=== PATIENT | male | born 1935 | race Caucasian/White ===

== ENCOUNTER 2017-07-15 11:57 | Observation (INO) | payer MEDICARE, BC ==
[2017-07-15] MEDS ORDERED: Sodium Chloride 0.9% 1,000 ML IV SCH (12:45)
--- NOTE | 2017-07-15 12:45 | EDM.PDOC ---
ED HPI GENERAL MEDICAL PROBLEM - General Chief Complaint: General Stated Complaint: MEDICAL Time Seen by Provider: 07/15/17 12:20 Source of Information: Reports: Patient, EMS, Family History Limitations: Reports: No Limitations - History of Present Illness INITIAL COMMENTS - FREE TEXT/NARRATIVE: 82-year-old male who unfortunately is developing worsening Alzheimer's type symptoms, becoming less able to care for himself and participate in daily self- care activities. He is becoming weaker and falling frequently. He had a neuro memory assessment last week which agreed that it is likely Alzheimer's type rapidly progressing. He has fallen several times in the last 3 days and his can simply not take care of him anymore. He is not eating well, becoming frail. No fevers or chills, does not complain of shortness of breath or cough but his history is somewhat inconsistent as his ability to stay on task with a conversation is very limited. He has a bruise on his right chin from a recent fall. The ambulance went to his place of residence again today after another fall and the home health nurse suggested he come in to start the process of more definitive care. In reviewing his clinic records he surprisingly has not had any lab work in the last 5 months. He has a known significant prostatic hypertrophy but is not complaining of dysuria or urinary tract symptoms although he tends to be incontinent at times. Onset: Unknown/Unsure Severity: Moderate Associated Symptoms: Reports: Loss of Appetite, Malaise, Weakness. Denies: Chest Pain, Fever/Chills, Headaches, Shortness of Breath - Related Data Allergies Allergy/AdvReac Type Severity Reaction Status Date / Time No Known Allergies Allergy Verified 05/14/13 08:02 Home Meds: Home Meds Metoprolol Succinate 50 mg PO DAILY 01/10/13 [History] Nitroglycerin 0.4 mg PO ASDIRECTED PRN 01/10/13 [History] Simvastatin [Zocor] 40 mg PO BEDTIME 01/10/13 [History] Tamsulosin [Flomax] 0.4 mg PO DAILY 11/24/15 [History] Aspirin 162 mg PO DAILY 07/15/17 [History] Oxybutynin 5 mg PO QPM 07/15/17 [History] Past Medical History Cardiovascular History: Reports: CAD, High Cholesterol, Hypertension Genitourinary History: Reports: BPH - Past Surgical History Musculoskeletal Surgical History: Reports: Knee Replacement Social & Family History - Tobacco Use Smoking Status *Q: Never Smoker Years of Tobacco use: 40 Used Tobacco, but Quit: Yes Month/Year Tobacco Last Used: July, Second Hand Smoke Exposure: No - Alcohol Use Days Per Week of Alcohol Use: 1 Number of Drinks Per Day: 1 Total Drinks Per Week: 1 - Recreational Drug Use Recreational Drug Use: No ED ROS GENERAL - Review of Systems Review Of Systems: See Below Constitutional: Denies: Fever Respiratory: Denies: Shortness of Breath Cardiovascular: Denies: Chest Pain GI/Abdominal: Denies: Abdominal Pain Musculoskeletal: Reports: Other (Chronic left knee pain) Skin: Reports: Bruising (Bruising on his right chin from a recent fall) Neurological: Reports: Confusion, Weakness ED EXAM, GENERAL - Physical Exam Exam: See Below Exam Limited By: Altered Mental Status (Patient has significant delay with answering questions does not seem to be consistent with answers) General Appearance: Alert, No Apparent Distress Eye Exam: Bilateral Eye: EOMI Head: Other (Patient has a small area of swelling and bruising on his right mandible) Neck: Supple Respiratory/Chest: No Respiratory Distress, Lungs Clear Cardiovascular: Regular Rate, Rhythm GI/Abdominal: Soft, Non-Tender Extremities: Other (Reacts with tenderness to palpation around the left knee, there is a neoprene knee sleeve present). No: Pedal Edema Neurological: Alert, Other (Seems to be oriented to time and place as well as person but very flat affect and slow response to questions) Course - Vital Signs Last Recorded V/S: Last Vital Signs Temp 97.9 F 07/16/17 07:45 Pulse 78 07/16/17 08:40 Resp 16 07/16/17 08:40 BP 107/80 07/16/17 08:40 Pulse Ox 97 07/16/17 08:40 - Orders/Labs/Meds Orders: Medication Orders Acetaminophen (Tylenol) 650 mg PO Q4H PRN PRN Reason: Pain (Mild 1-3)/fever Aspirin (Halfprin) 162 mg PO DAILY [facility] Ibuprofen (Motrin) 400 mg PO Q6H PRN PRN Reason: Pain (mild 1-3) Melatonin (Melatonin) 9 mg PO BEDTIME [facility] Last Admin: 07/15/17 20:00 Dose: 9 mg Metoprolol Succinate (Toprol Xl) 50 mg PO DAILY [facility] Ondansetron HCl (Zofran Odt) 4 mg PO Q6H PRN PRN Reason: Nausea able to take PO Oxybutynin Chloride (Oxybutynin) 5 mg PO BID [facility] Last Admin: 07/15/17 20:00 Dose: 5 mg Simvastatin 40 Mg (TabPom) 0 each PO BEDTIME [facility] Senna/Docusate Sodium (Senna Plus) 1 tab PO BID PRN PRN Reason: Constipation Tamsulosin HCl (Flomax) 0.4 mg PO BEDTIME [facility] Last Admin: 07/15/17 20:00 Dose: 0.4 mg Labs: Laboratory Tests 07/15/17 07/15/17 07/15/17 Range/Units 12:46 12:46 12:59 WBC 11.0 (4.5-11.0) K/uL RBC 4.52 (4.30-5.90) M/uL Hgb 14.5 (12.0-15.0) g/dL Hct 41.3 (40.0-54.0) % MCV 91 (80-98) fL MCH 32 H (27-31) pg MCHC 35 (32-36) % Plt Count 215 (150-400) K/uL Neut % (Auto) 84 H (36-66) % Lymph % (Auto) 5 L (24-44) % [place] % (Auto) 10 H (2-6) % Eos % (Auto) 1 L (2-4) % Baso % (Auto) 0 (0-1) % Sodium 133 L (140-148) mmol/L Potassium 4.2 (3.6-5.2) mmol/L Chloride 96 L (100-108) mmol/L Carbon Dioxide 27 (21-32) mmol/L Anion Gap 14.2 H (5.0-14.0) mmol/L BUN 16 (7-18) mg/dL Creatinine 1.0 (0.8-1.3) mg/dL Est Cr Clr Drug Dosing 63.93 mL/min Estimated GFR (MDRD) > 60 (>60) Glucose 97 (74-106) mg/dL Calcium 9.5 (8.5-10.1) mg/dL Total Bilirubin 1.0 D (0.2-1.0) mg/dL AST 17 (15-37) U/L ALT 21 (12-78) U/L Alkaline Phosphatase 87 (46-116) U/L Total Protein 7.1 (6.4-8.2) g/dL Albumin 3.9 (3.4-5.0) g/dL Globulin 3.2 (2.3-3.5) g/dL Albumin/Globulin Ratio 1.2 (1.2-2.2) Urine Color Yellow Urine Appearance Clear Urine pH 7.0 (4.5-8.0) Ur Specific [place] 1.015 (1.008-1.030) Urine Protein Negative (NEGATIVE) mg/dL Urine Glucose (UA) Normal (NEGATIVE) mg/dL Urine Ketones 15 H (NEGATIVE) mg/dL Urine Occult Blood Trace (NEGATIVE) Urine Nitrite Negative (NEGAITVE) Urine Bilirubin Negative (NEGATIVE) Urine Urobilinogen 1 (NORMAL) mg/dL Ur Leukocyte Esterase Negative (NEGATIVE) Urine RBC 5-10 H (0-5) Urine WBC 0-5 (0-5) Ur Epithelial Cells Rare Amorphous Sediment Few Urine Bacteria Not seen Urine Mucus Rare Meds: Medications Generic Name Dose Route Start Last Admin Trade Name Freq PRN Reason Stop Dose Admin Acetaminophen 650 mg 07/15/17 15:32 Tylenol PO Q4H PRN Pain (Mild 1-3)/fever Aspirin 162 mg 07/16/17 09:00 Halfprin PO DAILY [facility] Ibuprofen 400 mg 07/15/17 15:32 Motrin PO Q6H PRN Pain (mild 1-3) Melatonin 9 mg 07/15/17 21:00 1818 20:00 Melatonin PO 9 mg BEDTIME [facility] Administration Metoprolol Succinate 50 mg 07/16/17 09:00 Toprol Xl PO DAILY [facility] Ondansetron HCl 4 mg 07/15/17 15:32 Zofran Odt PO Q6H PRN Nausea able to take PO Oxybutynin Chloride 5 mg 07/15/17 21:00 07/15/17 20:00 Oxybutynin PO 5 mg BID [facility] Administration Simvastatin 40 Mg 0 each 07/16/17 21:00 TabPom PO BEDTIME [facility] Senna/Docusate Sodium 1 tab 07/15/17 15:32 Senna Plus PO BID PRN Constipation Tamsulosin HCl 0.4 mg 07/15/17 21:00 07/15/17 20:00 Flomax PO 0.4 mg BEDTIME [facility] Administration Discontinued Medications Generic Name Dose Route Start Last Admin Trade Name Arnulfo PRN Reason Stop Dose Admin Sodium Chloride 1,000 mls @ 250 mls/hr 07/15/17 12:45 07/15/17 12:50 Normal Saline IV 250 mls/hr ASDIRECTED [facility] Administration Simvastatin 40 mg 07/15/17 21:00 07/15/17 20:00 Zocor PO 40 mg BEDTIME [facility] Administration - Re-Assessments/Exams Free Text/Narrative Re-Assessment/Exam: 07/15/17 13:03 A CBC, CMP and UA were obtained. Hydration was initiated at 250 mL an hour of normal saline. 07/15/17 13:31 Urine had ketones present, however his blood work looks very stable. There is certainly at least mild dehydration present. I discussed this with Dr. King of the hospitalist service, he'll assess the patient to see if there is a possibility of admitting him for hydration and initiate health and social care teacher for placement and continuing care. Departure - Departure Time of Disposition: 15:17 Disposition: Admitted As Inpatient 64 Condition: Poor Clinical Impression: Dehydration, mild, Weakness generalized Dementia Qualifiers: Dementia type: Alzheimer's disease Alzheimer's disease onset: late-onset Dementia behavioral disturbance: without behavioral disturbance Qualified Code(s ): G30.1 - Alzheimer's disease with late onset - Discharge Information
--- NOTE | 2017-07-15 14:32 | PCM.HP ---
H&P History of Present Illness - General Date of Service: 07/15/17 Admit Problem/Dx: Admission Diagnosis/Problem Admission Diagnosis/Problem Fall Source of Information: Family, Provider. No: Patient History Limitations: Reports: Altered Mental Status (dementia) - History of Present Illness Initial Comments - Free Text/Narative: Keny presents to the emergency room today after a fall at home. He has advanced dementia and is unable to provide any history at this time. History is gathered from emergency room personnel, paramedics and his . Per report he has had a couple of falls over the past few days. His does not think he's been eating very well but does not report any specific symptoms. She does note that he has been waking up at night several times to go urinate and that's when he had his fall early this morning. He is not sure if he injured himself during the fall. He is not currently reporting any pain. He thinks may be he's been short of breath but not sure. Doesn't think he's had any fevers but again he's not sure. He repeats the same questions over and over. He is not sure where he sat. I did talk to his and she was hoping that he could be checked out after the fall to make sure there wasn't anything wrong. She would like him to come home if at all possible. She does not think that he needs to go to the prison. There is a reportedly concern from the home health care folks that he may not be safe at home. Workup in the emergency room has been unremarkable. Labs are normal. No evidence for urinary tract infection. He will be admitted for observation as there is no right available to get him home tonight. - Related Data Allergies/Adverse Reactions: Allergies Allergy/AdvReac Type Severity Reaction Status Date / Time No Known Allergies Allergy Verified 05/14/13 08:02 Home Medications: Home Meds Metoprolol Succinate 50 mg PO DAILY 01/10/13 [History] Nitroglycerin 0.4 mg PO ASDIRECTED PRN 01/10/13 [History] Simvastatin [Zocor] 40 mg PO BEDTIME 01/10/13 [History] Tamsulosin [Flomax] 0.4 mg PO DAILY 11/24/15 [History] Aspirin 162 mg PO DAILY 07/15/17 [History] Oxybutynin 5 mg PO QPM 07/15/17 [History] Past Medical History Cardiovascular History: Reports: CAD, High Cholesterol, Hypertension Genitourinary History: Reports: BPH - Past Surgical History Musculoskeletal Surgical History: Reports: Knee Replacement Social & Family History - Family History Family Medical History: Unobtainable (dementia) - Tobacco Use Smoking Status *Q: Never Smoker Years of Tobacco use: 40 Used Tobacco, but Quit: Yes Month/Year Tobacco Last Used: July, Second Hand Smoke Exposure: No - Alcohol Use Days Per Week of Alcohol Use: 1 Number of Drinks Per Day: 1 Total Drinks Per Week: 1 - Recreational Drug Use Recreational Drug Use: No H&P Review of Systems - Review of Systems: Review Of Systems: Unable To Obtain (severe dementia) Exam - Exam Exam: See Below - Vital Signs Vital Signs: Last Vital Signs Temp 36.4 C 07/15/17 12:51 Pulse 91 07/15/17 12:51 Resp 14 07/15/17 12:51 BP 134/84 07/15/17 12:51 Pulse Ox 92 L 07/15/17 12:51 Weight: 99.79 kg - Exam Quality Assessment: No: Supplemental Oxygen General: Alert, Cooperative. No: Oriented, Mild Distress HEENT: Conjunctiva Clear, Mucosa Moist & [place]. No: Scleral Icterus Neck: Supple, Trachea Midline. No: Lymphadenopathy Lungs: Clear to Auscultation, Normal Respiratory Effort Cardiovascular: Regular Rate, Regular Rhythm. No: Systolic Murmur GI/Abdominal Exam: Normal Bowel Sounds, Soft, Non-Tender, No Distention Extremities: Normal Inspection, No Pedal Edema, Other (no tenderness, swelling, bruising on shoulders, elbows, wrists, knees, ankles). No: Increased Warmth Skin: Warm, Dry. No: Rash, Ecchymosis Neuro Extensive - Mental Status: Alert, Disorientation to Place, Disorientation to Time, Memory Loss-Recent Events, Nl Response to Commands. No: Oriented x3, Normal Cognition Neuro Extensive - Motor, Sensory, Reflexes: CN II-XII Intact. No: Dysarthria, Abnormal Motor, Tremor Psychiatric: Alert, Normal Affect - Patient Data Lab Results Last 24 hrs: Laboratory Results - last 24 hr 07/15/17 07/15/17 07/15/17 Range/Units 12:46 12:46 12:59 WBC 11.0 (4.5-11.0) K/uL RBC 4.52 (4.30-5.90) M/uL Hgb 14.5 (12.0-15.0) g/dL Hct 41.3 (40.0-54.0) % MCV 91 (80-98) fL MCH 32 H (27-31) pg MCHC 35 (32-36) % Plt Count 215 (150-400) K/uL Neut % (Auto) 84 H (36-66) % Lymph % (Auto) 5 L (24-44) % [place] % (Auto) 10 H (2-6) % Eos % (Auto) 1 L (2-4) % Baso % (Auto) 0 (0-1) % Sodium 133 L (140-148) mmol/L Potassium 4.2 (3.6-5.2) mmol/L Chloride 96 L (100-108) mmol/L Carbon Dioxide 27 (21-32) mmol/L Anion Gap 14.2 H (5.0-14.0) mmol/L BUN 16 (7-18) mg/dL Creatinine 1.0 (0.8-1.3) mg/dL Est Cr Clr Drug Dosing 63.93 mL/min Estimated GFR (MDRD) > 60 (>60) Glucose 97 (74-106) mg/dL Calcium 9.5 (8.5-10.1) mg/dL Total Bilirubin 1.0 D (0.2-1.0) mg/dL AST 17 (15-37) U/L ALT 21 (12-78) U/L Alkaline Phosphatase 87 (46-116) U/L Total Protein 7.1 (6.4-8.2) g/dL Albumin 3.9 (3.4-5.0) g/dL Globulin 3.2 (2.3-3.5) g/dL Albumin/Globulin Ratio 1.2 (1.2-2.2) Urine Color Yellow Urine Appearance Clear Urine pH 7.0 (4.5-8.0) Ur Specific [place] 1.015 (1.008-1.030) Urine Protein Negative (NEGATIVE) mg/dL Urine Glucose (UA) Normal (NEGATIVE) mg/dL Urine Ketones 15 H (NEGATIVE) mg/dL Urine Occult Blood Trace (NEGATIVE) Urine Nitrite Negative (NEGAITVE) Urine Bilirubin Negative (NEGATIVE) Urine Urobilinogen 1 (NORMAL) mg/dL Ur Leukocyte Esterase Negative (NEGATIVE) Urine RBC 5-10 H (0-5) Urine WBC 0-5 (0-5) Ur Epithelial Cells Rare Amorphous Sediment Few Urine Bacteria Not seen Urine Mucus Rare Result Diagrams: 07/15/17 12:46 07/15/17 12:46 *Q Meaningful Use (ADM) - VTE *Q VTE Criteria *Q: - VTE Risk Assess *Q Each Risk Factor Represents 1 Point: None Total Score 1 Point Risk Factors: 0 Each Risk Factor Represents 2 Points: None Total Score 2 Point Risk Factors: 0 Each Risk Factor Represents 3 Points: Age 75 Years or Greater Total Score 3 Point Risk Factors: 3 Each Risk Factor Represents 5 Points: None Total Score 5 Point Risk Factors: 0 Venous Thromboembolism Risk Factor Score *Q: 3 - Stroke *Q Stroke Criteria *Q: - AMI *Q AMI Criteria *Q: - Problem List (1) Dehydration, mild SNOMED Code(s): 6029517776720 ICD Code: E86.0 - DEHYDRATION Status: Acute Current Visit: Yes (2) Weakness generalized SNOMED Code(s): 67987980 ICD Code: R53.1 - WEAKNESS Status: Acute Current Visit: Yes (3) Alzheimer's dementia without behavioral disturbance SNOMED Code(s): 72350522 ICD Code: G30.9 - ALZHEIMER'S DISEASE, UNSPECIFIED; F02.80 - DEMENTIA IN OTH DISEASES CLASSD ELSWHR W/O BEHAVRL DISTURB Status: Chronic Current Visit: Yes Qualifiers: Alzheimer's disease onset: late-onset Qualified Code(s): G30.1 - Alzheimer' s disease with late onset; F02.80 - Dementia in other diseases classified elsewhere without behavioral disturbance; F02.80 - Dementia in other diseases classified elsewhere without behavioral disturbance; F02.80 - Dementia in other diseases classified elsewhere without behavioral disturbance (4) BPH w urinary obs/LUTS SNOMED Code(s): 183544835 ICD Code: N40.1 - BENIGN PROSTATIC HYPERPLASIA WITH LOWER URINARY TRACT SYMP ; N13.8 - OTHER OBSTRUCTIVE AND REFLUX UROPATHY Status: Chronic Current Visit: Yes Problem List Initiated/Reviewed/Updated: Yes Orders Last 24hrs: Active Orders 24 hr Category Date Time Status Patient Status Manage Transfer [TRANSFER] Routine ADT 03/18/18 14:19 Ordered Sodium Chloride 0.9% [Normal Saline] 1,000 ml Med 07/15/17 12:45 Active IV ASDIRECTED Resuscitation Status Routine Resus Stat 07/15/17 14:20 Ordered Medication Orders Sodium Chloride (Normal Saline) 1,000 mls @ 250 mls/hr IV ASDIRECTED [facility] Last Admin: 07/15/17 12:50 Dose: 250 mls/hr Assessment/Plan Comment:: ASSESSMENT AND PLAN - Fall with generalized weakness - may be mild dehydration but no other obvious acute issue. I suspect this is related to his dementia and probably some underlying weakness. No evidence for injury at this time. -Physical therapy in the morning Alzheimer's dementia without behavioral disturbance - recent neuropsych evaluation and concern for rapid progression. No behavior disturbances at this time. There is some concern reported about home safety for the patient. -Melatonin at bedtime -Physical therapy evaluation in the morning -Review home care notes tomorrow BPH with lower urinary tract symptoms - his reports frequent nocturia. He is on tamsulosin as well as oxybutynin. I'm going to switch around the tamsulosin to bedtime dosing and increase his oxybutynin to see if this provides some relief. -Tamsulosin at bedtime -Twice daily oxybutynin Maintenance issues - - DVT prophylaxis - mechanical - GI prophylaxis - not indicated - Nutrition - regular - Eng catheter - not indicated CODE STATUS - full code, discussed with his Paige Admission justification - patient will be referred observation status for overnight monitoring and physical therapy evaluation in the morning Disposition - possible discharge to home tomorrow if stable overnight. There is some concern about safety at home but would like him to come home at this time. He has had several recent falls and I believe family who do not live locally and home health care folks are thinking he needs to be in a prison. If he is discharged he would likely need a medivan ride as his reports there is no one who can come pick him up. Primary care physician - Dr. Andrew King M.D.
[2017-07-15] MEDS ORDERED: Ondansetron 4 MG Tab.DIS PO PRN (15:32)
[2017-07-15] MEDS ORDERED: Acetaminophen 325 MG Tab PO PRN (15:32)
[2017-07-15] MEDS ORDERED: Ibuprofen 400 MG Tab PO PRN (15:32)
[2017-07-15] MEDS: OXYBUTYNIN 5 MG PO SCH (20:00)
[2017-07-15] MEDS: Melatonin 3 MG Tab PO SCH (20:00)
[2017-07-15] MEDS: Tamsulosin 0.4 MG Cap.ER**POM PO SCH (20:00)
[2017-07-15] MEDS ORDERED: Non-Formulary Medication 1 Each (Simvastatin [Zocor] 40 MG) PO SCH (21:00)
[2017-07-15] MEDS ORDERED: Non-Formulary Medication 1 Each (Tamsulosin [Flomax] 0.4 MG) PO SCH (21:00)
[2017-07-15] MEDS ORDERED: Simvastatin 20 MG Tab PO SCH (21:00)
[2017-07-15] MEDS ORDERED: OXYBUTYNIN 5 MG PO SCH (21:00)
[2017-07-16] MEDS ORDERED: ASPIRIN 162 MG PO SCH (09:00)
[2017-07-16] MEDS ORDERED: Non-Formulary Medication 1 Each (Metoprolol Succinate [Metoprolol Succinate] 50 MG) PO SCH (09:00)
[2017-07-16] MEDS: Metoprolol Succinate 50 MG Tab.ER**POM PO SCH (10:52)
[2017-07-16] MEDS: Aspirin 81 MG Tab.EC**POM PO SCH (10:53)
[2017-07-16] MEDS: OXYBUTYNIN 5 MG PO SCH ×2 (10:53→21:11)
--- NOTE | 2017-07-16 13:16 | PCM.PN ---
- General Info Date of Service: 07/16/17 Subjective Update: Mr. Chisholm is an 82-year-old gentleman who was admitted through the emergency department to observation status because of progressive weakness and recurrent falls at home. He does have underlying dementia which is fairly severe pains not able to provide significant information concerning recent symptoms or events , including review of systems. He experienced an episode of syncope this morning after nurses got him up to go into the bathroom, he was placed on telemetry monitoring and has been noted to have intermittent episodes of atrial fib flutter with rapid ventricular response. - Patient Data Vitals - Most Recent: Last Vital Signs Temp 98.1 F 07/16/17 11:20 Pulse 103 H 07/16/17 11:20 Resp 15 07/16/17 11:20 BP 129/74 07/16/17 11:20 Pulse Ox 94 L 07/16/17 11:20 Weight - Most Recent: 220 lb I&O - Last 24 Hours: Intake & Output 07/15/17 07/16/17 07/16/17 22:59 06:59 14:59 Intake Total 540 240 300 Output Total 200 200 Balance 340 40 300 Med Orders - Current: Current Medications Acetaminophen (Tylenol) 650 mg PO Q4H PRN PRN Reason: Pain (Mild 1-3)/fever Aspirin (Halfprin) 162 mg PO DAILY [facility] Last Admin: 07/16/17 10:53 Dose: 162 mg Ibuprofen (Motrin) 400 mg PO Q6H PRN PRN Reason: Pain (mild 1-3) Melatonin (Melatonin) 9 mg PO BEDTIME [facility] Last Admin: 07/15/17 20:00 Dose: 9 mg Metoprolol Succinate (Toprol Xl) 50 mg PO DAILY [facility] Last Admin: 07/16/17 10:52 Dose: 50 mg Ondansetron HCl (Zofran Odt) 4 mg PO Q6H PRN PRN Reason: Nausea able to take PO Oxybutynin Chloride (Oxybutynin) 5 mg PO BID [facility] Last Admin: 07/16/17 10:53 Dose: 5 mg Simvastatin 40 Mg (TabPom) 0 each PO BEDTIME [facility] Senna/Docusate Sodium (Senna Plus) 1 tab PO BID PRN PRN Reason: Constipation Sotalol HCl (Betapace) 40 mg PO BID [facility] Tamsulosin HCl (Flomax) 0.4 mg PO BEDTIME [facility] Last Admin: 07/15/17 20:00 Dose: 0.4 mg Discontinued Medications Sodium Chloride (Normal Saline) 1,000 mls @ 250 mls/hr IV ASDIRECTED [facility] Last Admin: 07/15/17 12:50 Dose: 250 mls/hr Simvastatin (Zocor) 40 mg PO BEDTIME [facility] Last Admin: 07/15/17 20:00 Dose: 40 mg - Exam Quality Assessment: DVT Prophylaxis General: Alert, Cooperative, No Acute Distress. No: Oriented Lungs: Clear to Auscultation, Normal Respiratory Effort Cardiovascular: Regular Rate, Regular Rhythm, No Murmurs GI/Abdominal Exam: Soft, Non-Tender, No Organomegaly, No Distention Extremities: Non-Tender, No Pedal Edema Skin: Warm, Dry, Intact - Problem List Review Problem List Initiated/Reviewed/Updated: Yes - My Orders Last 24 Hours: My Active Orders 07/16/17 09:01 Cardiac Monitoring [RC] .As Directed 07/16/17 12:06 Orthostatic Vital Signs [RC] Q6HR 07/16/17 12:10 Echo Comp wo Cont [US] Urgent 07/16/17 13:15 Sotalol [Betapace] 40 mg PO BID - Plan Plan:: ASSESSMENT AND PLAN - Fall with generalized weakness - may be mild dehydration but no other obvious acute issue. I suspect this is related to his dementia and probably some underlying weakness. No evidence for injury at this time. -Physical therapy in the morning Syncope-seem to occur shortly after he got not, question as to whether this may be related to underlying A. fib flutter versus orthostasis. -Echocardiogram -Orthostatic vital signs -Cardiac monitoring Atrial fib flutter-with variable ventricular response -Echo as above -Sotalol 40 mg by mouth twice a day Alzheimer's dementia without behavioral disturbance - recent neuropsych evaluation and concern for rapid progression. No behavior disturbances at this time. There is some concern reported about home safety for the patient. -Melatonin at bedtime -Physical therapy evaluation -Review home care notes tomorrow BPH with lower urinary tract symptoms - his reports frequent nocturia. He is on tamsulosin as well as oxybutynin. -Tamsulosin at bedtime -Twice daily oxybutynin Maintenance issues - - DVT prophylaxis - mechanical - GI prophylaxis - not indicated - Nutrition - regular - Eng catheter - not indicated CODE STATUS - full code, discussed with his Paige Admission justification - patient will be changed to inpatient status because of syncope and atrial flutter Disposition - will likely require prison placement Primary care physician - Dr. Morales
[2017-07-16] MEDS: Sotalol 80 MG Tab PO SCH ×2 (13:52→21:12)
[2017-07-16] MEDS: Divalproex Sodium Delayed-Release 250 MG Tab.CR PO SCH (18:57)
[2017-07-16] MEDS ORDERED: SIMVASTATIN 40 MG PO SCH (21:00)
[2017-07-16] MEDS: Tamsulosin 0.4 MG Cap.ER**POM PO SCH (21:12)
[2017-07-16] MEDS: Melatonin 3 MG Tab PO SCH (21:14)
[2017-07-17] MEDS: Metoprolol Succinate 50 MG Tab.ER**POM PO SCH (08:37)
[2017-07-17] MEDS: Aspirin 81 MG Tab.EC**POM PO SCH (08:37)
[2017-07-17] MEDS: OXYBUTYNIN 5 MG PO SCH (08:38)
[2017-07-17] MEDS: Divalproex Sodium Delayed-Release 250 MG Tab.CR PO SCH ×2 (08:38→16:58)
[2017-07-17] MEDS: Sotalol 80 MG Tab PO SCH ×2 (08:38→20:42)
--- NOTE | 2017-07-17 15:23 | PCM.PN ---
- General Info Date of Service: 07/17/17 Subjective Update: Mr. Denton has been more stable over the past 24 hours, since initiation of sotalol he's had no further episodes of atrial fibrillation/flutter with rapid rate. Orthostatic vital signs have not shown a consistent drop in blood pressure with standing and he's had no further episodes of lightheadedness, weakness, or syncope. He has been confused, agitation improved with melatonin and Depakote. Because of his confusion is unable to provide specifics concerning recent symptoms or review of systems. Functional Status: Reports: Tolerating Diet, Urinating - Patient Data Vitals - Most Recent: Last Vital Signs Temp 96.6 F 07/17/17 11:04 Pulse 88 07/17/17 11:04 Resp 16 07/17/17 11:04 BP 104/71 07/17/17 11:04 Pulse Ox 97 07/17/17 11:04 Orthostatic Blood Pressure [ 125/75 Laying] Orthostatic Blood Pressure [ 103/71 Standing] Orthostatic Blood Pressure [ 104/71 Sitting] Weight - Most Recent: 177 lb 3.215 oz I&O - Last 24 Hours: Intake & Output 07/17/17 07/17/17 07/17/17 06:59 14:59 22:59 Output Total 150 375 Balance -150 -375 Med Orders - Current: Current Medications Acetaminophen (Tylenol) 650 mg PO Q4H PRN PRN Reason: Pain (Mild 1-3)/fever Aspirin (Halfprin) 162 mg PO DAILY [facility] Last Admin: 07/17/17 08:37 Dose: 162 mg Divalproex Sodium (Divalproex Sodium) 250 mg PO BIDMEALS [facility] Last Admin: 07/17/17 08:38 Dose: 250 mg Ibuprofen (Motrin) 400 mg PO Q6H PRN PRN Reason: Pain (mild 1-3) Melatonin (Melatonin) 9 mg PO BEDTIME [facility] Last Admin: 07/16/17 21:14 Dose: 9 mg Metoprolol Succinate (Toprol Xl) 25 mg PO DAILY [facility] Ondansetron HCl (Zofran Odt) 4 mg PO Q6H PRN PRN Reason: Nausea able to take PO Simvastatin 40 Mg (TabPom) 0 each PO BEDTIME [facility] Last Admin: 07/16/17 21:13 Dose: 1 each Senna/Docusate Sodium (Senna Plus) 1 tab PO BID PRN PRN Reason: Constipation Sotalol HCl (Betapace) 40 mg PO BID [facility] Last Admin: 07/17/17 08:38 Dose: 40 mg Tamsulosin HCl (Flomax) 0.4 mg PO BEDTIME [facility] Last Admin: 07/16/17 21:12 Dose: 0.4 mg Discontinued Medications Sodium Chloride (Normal Saline) 1,000 mls @ 250 mls/hr IV ASDIRECTED [facility] Last Admin: 07/15/17 12:50 Dose: 250 mls/hr Metoprolol Succinate (Toprol Xl) 50 mg PO DAILY [facility] Last Admin: 07/17/17 08:37 Dose: 50 mg Oxybutynin Chloride (Oxybutynin) 5 mg PO BID [facility] Last Admin: 07/17/17 08:38 Dose: 5 mg Simvastatin (Zocor) 40 mg PO BEDTIME [facility] Last Admin: 07/15/17 20:00 Dose: 40 mg - Exam Quality Assessment: DVT Prophylaxis General: Alert, Cooperative, No Acute Distress. No: Oriented Lungs: Clear to Auscultation, Normal Respiratory Effort Cardiovascular: Regular Rate, Regular Rhythm, No Murmurs GI/Abdominal Exam: Soft, Non-Tender, No Organomegaly, No Distention Extremities: Non-Tender, No Pedal Edema Skin: Warm, Dry, Intact - Problem List Review Problem List Initiated/Reviewed/Updated: Yes - My Orders Last 24 Hours: My Active Orders 07/16/17 17:06 Divalproex Sodium 250 mg PO BIDMEALS 07/17/17 15:11 Metoprolol Succinate [Toprol XL] 25 mg PO DAILY - Plan Plan:: ASSESSMENT AND PLAN - Fall with generalized weakness - may have been related to recurrent episodes of atrial fibrillation flutter with rapid ventricular response -Physical therapy in the morning Syncope-seem to occur shortly after he got up, question as to whether this may be related to underlying A. fib flutter versus orthostasis. No consistent drop in blood pressure with standing, tachydysrhythmia controlled with current use of sotalol. -Orthostatic vital signs -Cardiac monitoring Atrial fib flutter-with variable ventricular response. Echocardiogram was suboptimal because of rapid rate, left ventricular function appears to be preserved. No evidence thus far of significant QT prolongation with use of sotalol -Sotalol 40 mg by mouth twice a day Alzheimer's dementia without behavioral disturbance - recent neuropsych evaluation and concern for rapid progression. Agitated delirium improved with use of melatonin and Depakote -Melatonin at bedtime -Depakote 250 mg by mouth twice a day -Physical therapy evaluation BPH with lower urinary tract symptoms - his reports frequent nocturia. He is on tamsulosin -Tamsulosin at bedtime -Discontinue oxybutynin as it may be contributing to current tachycardia dysrhythmias Maintenance issues - - DVT prophylaxis - mechanical - GI prophylaxis - not indicated - Nutrition - regular - Eng catheter - not indicated CODE STATUS - full code, discussed with his Paige Admission justification - patient will be changed to inpatient status because of syncope and atrial flutter Disposition - will likely require long-term placement Primary care physician - Dr. Morales
[2017-07-17] MEDS: Melatonin 3 MG Tab PO SCH (20:42)
[2017-07-17] MEDS: Tamsulosin 0.4 MG Cap.ER PO SCH (20:46)
[2017-07-17] MEDS: Simvastatin 20 MG Tab PO SCH (20:46)
[2017-07-18] MEDS: Divalproex Sodium Delayed-Release 250 MG Tab.CR PO SCH ×2 (07:57→17:33)
[2017-07-18] MEDS: Sotalol 80 MG Tab PO SCH ×2 (08:47→20:16)
[2017-07-18] MEDS: Aspirin 81 MG Tab.EC PO SCH (08:49)
[2017-07-18] MEDS: Metoprolol Succinate 25 MG Tab.ER PO SCH (08:50)
--- NOTE | 2017-07-18 10:36 | PCM.PN ---
- General Info Date of Service: 07/18/17 Subjective Update: Mr. Chisholm has been stable since yesterday, seems to be somewhat stronger and doing better with transfers and ambulation. He has had no further significant episodes of atrial fibrillation and there has been no evidence of QT prolongation. He is unable to provide significant information concerning recent symptoms or review of systems secondary to underlying dementia. - Patient Data Vitals - Most Recent: Last Vital Signs Temp 97.9 F 07/18/17 08:04 Pulse 77 07/18/17 08:50 Resp 16 07/18/17 08:04 BP 150/87 H 07/18/17 08:50 Pulse Ox 95 07/18/17 08:04 Orthostatic Blood Pressure [ 131/85 Laying] Orthostatic Blood Pressure [ 87/48 Standing] Orthostatic Blood Pressure [ 101/67 Sitting] Weight - Most Recent: 177 lb 3.215 oz I&O - Last 24 Hours: Intake & Output 07/17/17 07/18/17 07/18/17 22:59 06:59 14:59 Intake Total 720 360 Output Total 250 200 350 Balance 470 -200 10 Med Orders - Current: Current Medications Acetaminophen (Tylenol) 650 mg PO Q4H PRN PRN Reason: Pain (Mild 1-3)/fever Aspirin (Halfprin) 162 mg PO DAILY [facility] Last Admin: 07/18/17 08:49 Dose: 162 mg Divalproex Sodium (Divalproex Sodium) 250 mg PO BIDMEALS [facility] Last Admin: 07/18/17 07:57 Dose: 250 mg Ibuprofen (Motrin) 400 mg PO Q6H PRN PRN Reason: Pain (mild 1-3) Melatonin (Melatonin) 9 mg PO BEDTIME [facility] Last Admin: 07/17/17 20:42 Dose: 9 mg Metoprolol Succinate (Toprol Xl) 25 mg PO DAILY [facility] Last Admin: 07/18/17 08:50 Dose: 25 mg Ondansetron HCl (Zofran Odt) 4 mg PO Q6H PRN PRN Reason: Nausea able to take PO Senna/Docusate Sodium (Senna Plus) 1 tab PO BID PRN PRN Reason: Constipation Simvastatin (Zocor) 40 mg PO BEDTIME [facility] Last Admin: 07/17/17 20:46 Dose: 40 mg Sotalol HCl (Betapace) 40 mg PO BID [facility] Last Admin: 07/18/17 08:47 Dose: 40 mg Tamsulosin HCl (Flomax) 0.4 mg PO BEDTIME [facility] Last Admin: 07/17/17 20:46 Dose: 0.4 mg Discontinued Medications Aspirin (Halfprin) 162 mg PO DAILY [facility] Last Admin: 07/17/17 08:37 Dose: 162 mg Sodium Chloride (Normal Saline) 1,000 mls @ 250 mls/hr IV ASDIRECTED [facility] Last Admin: 07/15/17 12:50 Dose: 250 mls/hr Metoprolol Succinate (Toprol Xl) 50 mg PO DAILY [facility] Last Admin: 07/17/17 08:37 Dose: 50 mg Oxybutynin Chloride (Oxybutynin) 5 mg PO BID [facility] Last Admin: 07/17/17 08:38 Dose: 5 mg Simvastatin 40 Mg (TabPom) 0 each PO BEDTIME [facility] Last Admin: 07/16/17 21:13 Dose: 1 each Simvastatin (Zocor) 40 mg PO BEDTIME [facility] Last Admin: 07/15/17 20:00 Dose: 40 mg Tamsulosin HCl (Flomax) 0.4 mg PO BEDTIME [facility] Last Admin: 07/16/17 21:12 Dose: 0.4 mg - Exam Quality Assessment: DVT Prophylaxis General: Alert, Cooperative, No Acute Distress. No: Oriented Lungs: Clear to Auscultation, Normal Respiratory Effort Cardiovascular: Regular Rate, Regular Rhythm, No Murmurs GI/Abdominal Exam: Soft, Non-Tender, No Organomegaly, No Distention Extremities: Non-Tender, No Pedal Edema Skin: Warm, Dry, Intact - Problem List Review Problem List Initiated/Reviewed/Updated: Yes - My Orders Last 24 Hours: My Active Orders 07/18/17 09:00 Metoprolol Succinate [Toprol XL] 25 mg PO DAILY - Plan Plan:: ASSESSMENT AND PLAN - Fall with generalized weakness - may have been related to recurrent episodes of atrial fibrillation flutter with rapid ventricular response -Physical therapy in the morning Syncope-seem to occur shortly after he got up, question as to whether this may be related to underlying A. fib flutter versus orthostasis. No consistent drop in blood pressure with standing, tachydysrhythmia controlled with current use of sotalol. -Cardiac monitoring Atrial fib flutter-with variable ventricular response. Seems to be well controlled with current use of sotalol -Continue sotalol 40 mg by mouth twice a day Alzheimer's dementia without behavioral disturbance - recent neuropsych evaluation and concern for rapid progression. Agitated delirium improved with use of melatonin and Depakote -Melatonin at bedtime -Depakote 250 mg by mouth twice a day -Physical therapy evaluation BPH with lower urinary tract symptoms - his reports frequent nocturia. He is on tamsulosin -Tamsulosin at bedtime -Discontinue oxybutynin as it may be contributing to current tachycardia dysrhythmias Maintenance issues - - DVT prophylaxis - mechanical - GI prophylaxis - not indicated - Nutrition - regular - Eng catheter - not indicated CODE STATUS - full code, discussed with his Paige Admission justification - patient will be changed to inpatient status because of syncope and atrial flutter Disposition - will likely require [facility]dc placement Primary care physician - Dr. Morales
[2017-07-18] MEDS: Melatonin 3 MG Tab PO SCH (20:16)
[2017-07-18] MEDS: Tamsulosin 0.4 MG Cap.ER PO SCH (20:17)
[2017-07-18] MEDS: Simvastatin 20 MG Tab PO SCH (20:17)
[2017-07-18] MEDS: Finasteride 5 MG Tab PO SCH (20:19)
[2017-07-19] MEDS: Divalproex Sodium Delayed-Release 250 MG Tab.CR PO SCH ×2 (08:13→17:03)
[2017-07-19] MEDS: Sotalol 80 MG Tab PO SCH ×2 (08:14→20:30)
[2017-07-19] MEDS: Metoprolol Succinate 25 MG Tab.ER PO SCH (08:15)
[2017-07-19] MEDS: Aspirin 81 MG Tab.EC PO SCH (08:15)
--- NOTE | 2017-07-19 10:50 | PCM.PN ---
- General Info Date of Service: 07/19/17 Subjective Update: Mr. Chisholm has been stable since yesterday, no hemodynamic instability or significant dysrhythmias identified. Remains fairly confused and is unable to provide significant information concerning symptoms or review of systems. - Patient Data Vitals - Most Recent: Last Vital Signs Temp 97 F 07/19/17 08:04 Pulse 70 07/19/17 08:15 Resp 18 07/19/17 02:32 BP 135/79 07/19/17 08:15 Pulse Ox 92 L 07/19/17 08:04 Orthostatic Blood Pressure [ 141/88 Laying] Orthostatic Blood Pressure [ 108/72 Standing] Orthostatic Blood Pressure [ 148/86 Sitting] Weight - Most Recent: 177 lb 3.215 oz I&O - Last 24 Hours: Intake & Output 07/18/17 07/19/17 07/19/17 22:59 06:59 14:59 Intake Total 480 720 Output Total 400 300 Balance 80 -300 720 Med Orders - Current: Current Medications Acetaminophen (Tylenol) 650 mg PO Q4H PRN PRN Reason: Pain (Mild 1-3)/fever Aspirin (Halfprin) 162 mg PO DAILY [facility] Last Admin: 07/19/17 08:15 Dose: 162 mg Divalproex Sodium (Divalproex Sodium) 250 mg PO BIDMEALS [facility] Last Admin: 07/19/17 08:13 Dose: 250 mg Finasteride (Proscar) 5 mg PO BEDTIME [facility] Last Admin: 07/18/17 20:19 Dose: 5 mg Ibuprofen (Motrin) 400 mg PO Q6H PRN PRN Reason: Pain (mild 1-3) Melatonin (Melatonin) 9 mg PO BEDTIME [facility] Last Admin: 07/18/17 20:16 Dose: 9 mg Metoprolol Succinate (Toprol Xl) 25 mg PO DAILY [facility] Last Admin: 07/19/17 08:15 Dose: 25 mg Ondansetron HCl (Zofran Odt) 4 mg PO Q6H PRN PRN Reason: Nausea able to take PO Senna/Docusate Sodium (Senna Plus) 1 tab PO BID PRN PRN Reason: Constipation Simvastatin (Zocor) 40 mg PO BEDTIME [facility] Last Admin: 07/18/17 20:17 Dose: 40 mg Sotalol HCl (Betapace) 40 mg PO BID [facility] Last Admin: 07/19/17 08:14 Dose: 40 mg Tamsulosin HCl (Flomax) 0.4 mg PO BEDTIME [facility] Last Admin: 07/18/17 20:17 Dose: 0.4 mg Discontinued Medications Aspirin (Halfprin) 162 mg PO DAILY [facility] Last Admin: 07/17/17 08:37 Dose: 162 mg Sodium Chloride (Normal Saline) 1,000 mls @ 250 mls/hr IV ASDIRECTED [facility] Last Admin: 07/15/17 12:50 Dose: 250 mls/hr Metoprolol Succinate (Toprol Xl) 50 mg PO DAILY [facility] Last Admin: 07/17/17 08:37 Dose: 50 mg Oxybutynin Chloride (Oxybutynin) 5 mg PO BID [facility] Last Admin: 07/17/17 08:38 Dose: 5 mg Simvastatin 40 Mg (TabPom) 0 each PO BEDTIME [facility] Last Admin: 07/16/17 21:13 Dose: 1 each Simvastatin (Zocor) 40 mg PO BEDTIME [facility] Last Admin: 07/15/17 20:00 Dose: 40 mg Tamsulosin HCl (Flomax) 0.4 mg PO BEDTIME [facility] Last Admin: 07/16/17 21:12 Dose: 0.4 mg - Exam Quality Assessment: DVT Prophylaxis General: Alert, Cooperative, No Acute Distress. No: Oriented Lungs: Clear to Auscultation, Normal Respiratory Effort Cardiovascular: Regular Rate, Regular Rhythm, No Murmurs GI/Abdominal Exam: Soft, Non-Tender, No Organomegaly, No Distention Extremities: Non-Tender, No Pedal Edema Skin: Warm, Dry, Intact - Problem List Review Problem List Initiated/Reviewed/Updated: Yes - My Orders Last 24 Hours: My Active Orders 07/18/17 21:00 Finasteride [Proscar] 5 mg PO BEDTIME 07/19/17 10:46 Discontinue Telemetry Monitoring [Cardiac Monitoring Discontinue] [RC] Click to Edit - Plan Plan:: ASSESSMENT AND PLAN - Fall with generalized weakness - may have been related to recurrent episodes of atrial fibrillation flutter with rapid ventricular response -Physical therapy Syncope-seem to occur shortly after he got up, question as to whether this may be related to underlying A. fib flutter versus orthostasis. No consistent drop in blood pressure with standing, tachydysrhythmia controlled with current use of sotalol. -Discontinue cardiac monitoring Atrial fib flutter-with variable ventricular response. Seems to be well controlled with current use of sotalol -Continue sotalol 40 mg by mouth twice a day Alzheimer's dementia without behavioral disturbance - recent neuropsych evaluation and concern for rapid progression. Agitated delirium improved with use of melatonin and Depakote -Melatonin at bedtime -Depakote 250 mg by mouth twice a day -Physical therapy BPH with lower urinary tract symptoms - his reports frequent nocturia. He is on tamsulosin -Tamsulosin at bedtime -Proscar 5 mg by mouth daily -Discontinue oxybutynin as it may be contributing to current tachydysrhythmias -Outpatient follow-up with urology Maintenance issues - - DVT prophylaxis - mechanical - GI prophylaxis - not indicated - Nutrition - regular - Eng catheter - not indicated CODE STATUS - full code, discussed with his Paige Admission justification - patient will be changed to inpatient status because of syncope and atrial flutter Disposition - awaiting [facility] placement Primary care physician - Dr. Morales
[2017-07-19] MEDS: Simvastatin 20 MG Tab PO SCH (20:26)
[2017-07-19] MEDS: Melatonin 3 MG Tab PO SCH (20:28)
[2017-07-19] MEDS: Tamsulosin 0.4 MG Cap.ER PO SCH (20:31)
[2017-07-19] MEDS: Finasteride 5 MG Tab PO SCH (20:31)
[2017-07-20] MEDS: Sotalol 80 MG Tab PO SCH (08:13)
[2017-07-20] MEDS: Metoprolol Succinate 25 MG Tab.ER PO SCH (08:13)
[2017-07-20] MEDS: Divalproex Sodium Delayed-Release 250 MG Tab.CR PO SCH (08:13)
[2017-07-20] MEDS: Aspirin 81 MG Tab.EC PO SCH (08:14)
--- NOTE | 2017-07-20 10:50 | PCM.DCSUM1 ---
Discharge Summary - Hospital Course Brief History: Mr. Denton is an 82-year-old gentleman who was admitted to the emergency department to observation status for evaluation of progressive weakness and falls at home. - Discharge Data Discharge Date: 07/20/17 Discharge Disposition: DC/Tfer to SNF 03 Condition: Fair - Discharge Diagnosis/Problem(s) (1) Atrial fibrillation with rapid ventricular response SNOMED Code(s): 941438195445710 ICD Code: I48.91 - UNSPECIFIED ATRIAL FIBRILLATION Status: Acute Current Visit: Yes (2) Weakness generalized SNOMED Code(s): 86657206 ICD Code: R53.1 - WEAKNESS Status: Acute Current Visit: Yes (3) Dementia SNOMED Code(s): 64101768 ICD Code: F03.90 - UNSPECIFIED DEMENTIA WITHOUT BEHAVIORAL DISTURBANCE Status: Chronic Current Visit: Yes Qualifiers: Dementia type: Alzheimer's disease Alzheimer's disease onset: late-onset Dementia behavioral disturbance: without behavioral disturbance Qualified Code (s): G30.1 - Alzheimer's disease with late onset; F02.80 - Dementia in other diseases classified elsewhere without behavioral disturbance; F02.80 - Dementia in other diseases classified elsewhere without behavioral disturbance; F02.80 - Dementia in other diseases classified elsewhere without behavioral disturbance (4) BPH w urinary obs/LUTS SNOMED Code(s): 737548255 ICD Code: N40.1 - BENIGN PROSTATIC HYPERPLASIA WITH LOWER URINARY TRACT SYMP ; N13.8 - OTHER OBSTRUCTIVE AND REFLUX UROPATHY Status: Chronic Current Visit: Yes - Patient Summary/Data Consults: Consultations 07/16/17 07:00 PT Evaluation and Treatment [CONS] Routine Please Evaluate and Treat. PT Reason for Consult: Strengthening This query below is only for informational purposes and is not editable. Hospital Course: Keny presented to the emergency room on the day of admission, after a fall at home. He has advanced dementia and is unable to provide any history. History was gathered from emergency room personnel, paramedics and his . Per report he has had a couple of falls over the past few days, prior to admission. His does not think he's been eating very well but does not report any specific symptoms. She does note that he has been waking up at night several times to go urinate and that's when he had his fall. He is not sure if he injured himself during the fall. He did not report any pain. He thought maybe he's been short of breath but not sure. Doesn't think he's had any fevers but again he's not sure. He repeats the same questions over and over. He is not sure where he sat. I did talk to his and she was hoping that he could be checked out after the fall to make sure there wasn't anything wrong. She would like him to come home if at all possible. She does not think that he needs to go to the senior care. There is a reportedly concern from the home health care folks that he may not be safe at home. Workup in the emergency room was unremarkable. Labs are normal. No evidence for urinary tract infection. He was admitted for observation as he was unable to get a ride home on the evening of admission. On the morning after admission, after ambulating a short distance into the bathroom developed a brief unresponsive episode and was lowered to the floor by staff. He came around quickly, but afterwards was noted to have a relatively rapid heart rate. He was placed on telemetry and found to have intermittent episodes of atrial fibrillation with rapid ventricular response. Because of the syncopal episode as well as atrial fibrillation he was converted to inpatient status for further evaluation and management. It was felt likely that the intermittent episodes of atrial fibrillation could be contributing to falls and weakness. Orthostatic vital signs were obtained but he did was not found to have significant drops with change in position. He was started on sotalol 40 mg twice daily for management of his atrial fibrillation, this resulted in good control and after the medication was started did not have further episodes of rapid heart rate. Telemetry was monitored for any evidence of QT prolongation and none was noted. Oxybutynin was discontinued as it was felt that this could be a contributing factor to his tachydysrhythmia. Echocardiogram was obtained during hospitalization was suboptimal because of rapid heart rate which occurred during the time of the echocardiogram. It did show evidence of preserved left ventricular function. He did develop an agitated delirium related to his underlying dementia and hospitalization, this was treated with Depakote 250 mg twice daily and melatonin 9 mg by mouth daily at bedtime. The agitation seemed to improve significantly with these interventions. Another factor in his difficulty at home and falls was frequent urination. He has well- documented history of BPH with bladder outlet obstruction and was on Flomax at the time of admission. Proscar 5 mg by mouth daily was added to this regimen and he will have a follow-up appointment scheduled with urology as an outpatient. Because of his weakness and dementia he was not felt to be safe for discharge to home and will be discharged to senior care for restorative physical therapy as well as occupational therapy. Activity will be as tolerated and he will be on a geriatric low-sodium diet. He was not started on anticoagulation with the atrial fibrillation because of his weakness and recent falls. Follow-up with primary care will be at the senior care as needed. - Patient Instructions Diet: Usual Diet as Tolerated Activity: As Tolerated Other/Special Instructions: Daily physical therapy and occupational therapy while at the senior care. - Discharge Plan Prescriptions/Med Rec: Divalproex Sodium 250 mg PO BIDMEALS #60 tab.cr Finasteride [Proscar] 5 mg PO DAILY #30 tablet Melatonin 10 mg PO BEDTIME #30 capsule Metoprolol Succinate [Toprol XL] 25 mg PO DAILY #30 tab.er Sotalol [Betapace] 40 mg PO BID #60 tablet Home Medications: Home Meds Nitroglycerin 0.4 mg PO ASDIRECTED PRN 01/10/13 [History] Simvastatin [Zocor] 40 mg PO BEDTIME 01/10/13 [History] Tamsulosin [Flomax] 0.4 mg PO DAILY 11/24/15 [History] Aspirin 162 mg PO DAILY 07/15/17 [History] Divalproex Sodium 250 mg PO BIDMEALS #60 tab.cr 07/20/17 [Rx] Finasteride [Proscar] 5 mg PO DAILY #30 tablet 07/20/17 [Rx] Melatonin 10 mg PO BEDTIME #30 capsule 07/20/17 [Rx] Metoprolol Succinate [Toprol XL] 25 mg PO DAILY #30 tab.er 07/20/17 [Rx] Sotalol [Betapace] 40 mg PO BID #60 tablet 07/20/17 [Rx] Referrals: Justus Morales MD [Primary Care Provider] - Yandel Yañez MD [Consulting Physician] - 08/15/17 10:45 am - Discharge Summary/Plan Comment DC Time >30 min.: No - Patient Data Vitals - Most Recent: Last Vital Signs Temp 97.5 F 03/23/18 08:11 Pulse 62 07/20/17 08:13 Resp 16 07/20/17 08:11 BP 148/85 H 07/20/17 08:13 Pulse Ox 94 L 07/20/17 08:11 Orthostatic Blood Pressure [ 141/88 Laying] Orthostatic Blood Pressure [ 108/72 Standing] Orthostatic Blood Pressure [ 148/86 Sitting] Weight - Most Recent: 177 lb 3.215 oz I&O - Last 24 hours: Intake & Output 07/19/17 07/20/17 07/20/17 22:59 06:59 14:59 Intake Total 480 240 Output Total 400 450 350 Balance 80 -210 -350 Med Orders - Current: Current Medications Acetaminophen (Tylenol) 650 mg PO Q4H PRN PRN Reason: Pain (Mild 1-3)/fever Aspirin (Halfprin) 162 mg PO DAILY [facility] Last Admin: 07/20/17 08:14 Dose: 162 mg Divalproex Sodium (Divalproex Sodium) 250 mg PO BIDMEALS [facility] Last Admin: 07/20/17 08:13 Dose: 250 mg Finasteride (Proscar) 5 mg PO BEDTIME [facility] Last Admin: 07/19/17 20:31 Dose: 5 mg Ibuprofen (Motrin) 400 mg PO Q6H PRN PRN Reason: Pain (mild 1-3) Melatonin (Melatonin) 9 mg PO BEDTIME [facility] Last Admin: 07/19/17 20:28 Dose: 9 mg Metoprolol Succinate (Toprol Xl) 25 mg PO DAILY [facility] Last Admin: 07/20/17 08:13 Dose: 25 mg Ondansetron HCl (Zofran Odt) 4 mg PO Q6H PRN PRN Reason: Nausea able to take PO Senna/Docusate Sodium (Senna Plus) 1 tab PO BID PRN PRN Reason: Constipation Simvastatin (Zocor) 40 mg PO BEDTIME [facility] Last Admin: 07/19/17 20:26 Dose: 40 mg Sotalol HCl (Betapace) 40 mg PO BID [facility] Last Admin: 07/20/17 08:13 Dose: 40 mg Tamsulosin HCl (Flomax) 0.4 mg PO BEDTIME [facility] Last Admin: 07/19/17 20:31 Dose: 0.4 mg Discontinued Medications Aspirin (Halfprin) 162 mg PO DAILY [facility] Last Admin: 07/17/17 08:37 Dose: 162 mg Sodium Chloride (Normal Saline) 1,000 mls @ 250 mls/hr IV ASDIRECTED [facility] Last Admin: 07/15/17 12:50 Dose: 250 mls/hr Metoprolol Succinate (Toprol Xl) 50 mg PO DAILY [facility] Last Admin: 07/17/17 08:37 Dose: 50 mg Oxybutynin Chloride (Oxybutynin) 5 mg PO BID [facility] Last Admin: 07/17/17 08:38 Dose: 5 mg Simvastatin 40 Mg (TabPom) 0 each PO BEDTIME [facility] Last Admin: 07/16/17 21:13 Dose: 1 each Simvastatin (Zocor) 40 mg PO BEDTIME [facility] Last Admin: 07/15/17 20:00 Dose: 40 mg Tamsulosin HCl (Flomax) 0.4 mg PO BEDTIME [facility] Last Admin: 07/16/17 21:12 Dose: 0.4 mg - Exam Lungs: Reports: Clear to Auscultation, Normal Respiratory Effort Cardiovascular: Reports: Regular Rate, Regular Rhythm, No Murmurs GI/Abdominal Exam: Soft, Non-Tender, No Organomegaly *Q Meaningful Use (DIS) - VTE *Q VTE Criteria *Q: - Stroke *Q Stroke Criteria *Q: - AMI *Q AMI Criteria *Q:
[2017-07-20 13:29] VITALS: BP 147/73
== END 2017-07-20 14:20 | disposition home or self-care (01) ==
LOC: JP.ED 11:57 → UNDOADMIN 14:19 → JP.MS 14:19 → UNDODISIN 07-20 14:20
PROVIDERS: ADMIT Internal Medicine; ATTEND Internal Medicine
DX: I48.91 Unspecified atrial fibrillation (principal); I25.10 Atherosclerotic heart disease of native coronary artery without angina pectoris; I10 Essential (primary) hypertension; E78.00 Pure hypercholesterolemia, unspecified; N40.1 Benign prostatic hyperplasia with lower urinary tract symptoms; G30.1 Alzheimer's disease with late onset; F02.80 Dementia in other diseases classified elsewhere, unspecified severity, without behavioral disturbance, psychotic disturbance, mood disturbance, and anxiety; Z79.82 Long term (current) use of aspirin; Z79.899 Other long term (current) drug therapy; Z96.659 Presence of unspecified artificial knee joint; Z91.81 History of falling
CPT/HCPCS: 36415; 80053; 81001; 82962; 85025; 93005; 93306; 96360; 96361; 97110; 97116; 97162; 97530; 99284; 99285; A9270; J7040